=== PATIENT | female | born 1990 | race Two or more races ===

== ENCOUNTER 2020-08-30 16:13 | Emergency (ER) | payer OTHER ==
[~2020-08-30] VITALS: Ht 152.4 cm; Wt 63.6 kg
[2020-08-30] MEDS ORDERED: ONDANSETRON HCL 4 MG/2 ML VIAL IM ONE (16:45)
[2020-08-30] MEDS ORDERED: HYDROmorphone 2 MG/ML SYRINGE IM ONE (16:45)
[2020-08-30] MEDS ORDERED: IBUPROFEN 600 MG TABLET PO ONE (17:45)
[2020-08-30] MEDS ORDERED: ACETAMINOPHEN/CODEINE 300-30 MG TABLET PO ONE (17:45)
[2020-08-30 19:21] VITALS: BP 119/74
== END 2020-08-30 20:00 | disposition home or self-care (01) ==
LOC: EMS 16:16
DX: S82.491A Other fracture of shaft of right fibula, initial encounter for closed fracture (principal); S00.83XA Contusion of other part of head, initial encounter; W18.39XA Other fall on same level, initial encounter; Y93.89 Activity, other specified; Y92.89 Other specified places as the place of occurrence of the external cause; Y99.8 Other external cause status
CPT/HCPCS: 27788; 29540; 73590-TC; 73630-TC; Z7502; Z7610